=== PATIENT | female | born 1985 | race Caucasian/White ===

== ENCOUNTER 2019-05-08 08:04 | Outpatient (CLI) | payer OTHER, SELFPAY ==
--- NOTE | 2019-05-08 08:11 | ECG_ITS ---
Measurements Intervals [place] Rate: 61 P: [place]: 0 QRS: 79 QRSD: 83 T: 69 QT: 406 QTc: 411 Interpretive Statements SINUS RHYTHM BASELINE ARTIFACT- I, II, III, AVR, AVL, AVF NORMAL ECG Electronically Signed On 05-08-2019 8:35:41 PRODUCT MANAGEMENT INTERN by Moise Pulliam D.O.
[2019-05-08 08:31] LABS: Hematocrit 36.2 % (37.0-47.0); Hemoglobin 11.1 g/dL (12.0-15.0)
== END 2019-05-08 08:05 | disposition home or self-care (01) ==
PROVIDERS: Anesthesiology; PCP Physician Assistant; Visit Provider Surgery Plastic and Reconstructive Surgery
DX: L57.4 Cutis laxa senilis (principal)
CPT/HCPCS: 36415; 85014; 85018; 93005

== ENCOUNTER 2019-05-17 00:47 | Day surgery (SDC) | payer OTHER, SELFPAY ==
[2019-05-01 15:14] VITALS: BMI 26.3
[2019-05-17] VITALS (15 sets, daily range): BP systolic 99–126; BP diastolic 43–81; PULSE 55–78; RESP 12–20; TEMP 36.2–36.8; O2SAT 92–100
--- NOTE | ~2019-05-17 | XR_ITS ---
EXAMINATION: XR chest 1V portable INDICATION: Pneumothorax TECHNIQUE: Portable AP chest at 0641 hours COMPARISON: 05/17/2019 FINDINGS: A tiny right apical pneumothorax persists but has decreased. A small right pleural effusion persists but has also decreased. Airspace opacities of the right lung base have improved. Changes of bilateral augmentation mammoplasty are noted with mild soft tissue gas in the breasts and chest wall . The cardiomediastinal silhouette is normal. IMPRESSION: 1. Tiny right apical pneumothorax with interval decrease in size. 2. Small right pleural effusion, decreased. 3. Right basilar airspace opacity with improvement, consistent with atelectasis versus pneumonia. Reviewed, dictated and finalized at location A.
--- NOTE | ~2019-05-17 | XR_ITS ---
EXAMINATION: XR chest 1V portable DATE: 05/17/2019 11:41 INDICATION: Bilateral augmentation mammoplasty. Progressive tension abdominoplasty. Postop. TECHNIQUE: A single frontal view of the chest was obtained. COMPARISON: None. FINDINGS: There are bilateral breast implants. There is gas in the chest wall bilaterally, consistent with recent surgery. There is a small right pleural effusion. There are airspace opacities at right lung base. There is a small right apical pneumothorax. The heart size is normal. IMPRESSION: 1. Small right hydropneumothorax. 2. Airspace opacities at right lung base, consistent with atelectasis versus pneumonia. Reviewed, dictated and finalized at location A. IMPRESSION: 1. Small right hydropneumothorax. 2. Airspace opacities at right lung base, consistent with atelectasis versus pn eumonia.
[2019-05-17 06:29] LABS: Urine Cotinine NEGATIVE
[2019-05-17] MEDS: LACTATED RINGERS 1,000 ML 30 ML IV CONT ×2 (06:35→11:30)
--- NOTE | 2019-05-17 06:54 | WPDHPUPDATE1 ---
History and Physical Update Update Date/Time: 05/17/19 06:54 History and Physical has been reviewed, including an updated exam of the patient. There are NO changes in the patient's condition. Risks, benefits, and alternatives have been discussed and questions answered. Patient agrees to proceed with procedure.
--- NOTE | 2019-05-17 07:10 | WPDANESEPPF ---
Anes - Initial Pre Proc Eval Procedure: Operation Date: 05/17/19 07:30 Proposed Procedures p Bilateral Breast Augmentation - Jayden Hudson MD s Abdominoplasty - Jayden Hudson MD Date/Time: 05/17/19 07:10 Surgeon: Jayden Hudson MD Pre Op Diagnosis: Skin laxity, micromastia Patient Data Age: 33 Gender: F Height: 5 ft 6 in Weight: 73.2 kg Last Vital Signs Temp 36.8 C 05/17/19 06:12 Pulse 61 05/17/19 06:12 Resp 16 05/17/19 06:12 BP 99/43 L 05/17/19 06:12 Pulse Ox 100 05/17/19 06:12 Allergies Allergy/AdvReac Type Severity Reaction Status Date / Time codeine AdvReac Unknown Nausea and Verified 05/17/19 06:51 Vomiting Home Medications Medication Instructions Recorded Confirmed Type norgestimate-ethinyl estradiol 1 tablet PO DAILY 03/04/19 05/17/19 History carisoprodol 350 mg tablet 350 mg PO TID PRN #21 tablet 04/15/19 05/01/19 Rx docusate sodium 100 mg capsule 100 mg PO BID #14 cap 04/15/19 05/01/19 Rx ondansetron HCl 4 mg tablet 4 mg PO Q6H #30 tablet 04/15/19 05/01/19 Rx oxycodone-acetaminophen 5 mg-325 1 tablet PO Q6H PRN #15 tablet 04/15/19 05/17/19 Rx mg tablet Laboratory Tests 05/17/19 06:12 Cotinine Negative Patient hx anesthesia problems: post op nausea/vomiting Family hx anesthesia problems: none PMFSH Surgical History Surgical History History of Social History Social History Smoking status: Never smoker Alcohol intake: current Anes - Eval Final PreProcedure Day of Procedure 05/17/19 07:10 Patient weight: normal Heart: regular rate and rhythm Lungs: clear to auscultation Airway: Mallampati scale class II Neurological: alert and oriented Last oral intake: >/= 8 hours ASA classification: I Emergent: no Anesthetic plan: proceed Anesthesia type and monitoring: general LMA and standard monitoring Informed Consent: The patient's anesthetic plan and its attendant risks and benefits were discussed with the patient/family/POA. Questions were solicited and answers provided to the satisfaction of the patient/family/POA.
--- NOTE | 2019-05-17 07:34 | PM.PROC ---
Procedure Note - Detailed Date of procedure: 05/17/19 Pre-op diagnosis: Skin laxity, micromastia Post-op diagnosis: same Procedure performed: 1. Bilateral augmentation mammaplasty 2. Progressive tension abdominoplasty Description of procedure: She is here today for bilateral breast augmentation and abdominoplasty. Previously and again today the risks, benefits, alternatives were discussed in extensive detail. I wanted her to be very realistic about the risks involved as well as expectations. We discussed aftercare and what to monitor for. Made sure answered all of her questions to her satisfaction today and consent was obtained. Marked in the preoperative holding area with their verification. The patient was taken to the operating room placed supine on the operating table. Anesthesia was provided by anesthesiology. A ireland catheter was started. A surgical time-out was taken. We cleansed the skin and 1% lidocaine and 0.25% Marcaine with epinephrine was used anesthetize as a field block. She was prepped and draped in a standard sterile fashion. Tegaderm nipple Hunter were placed. A 15 blade used to make an incision along the inframammary fold. Dissection was continued at 45 degree angle until the chest wall as identified. I incised the pectoralis major along its inferior border and completely released the inferior border leaving the medial border intact. I created a subpectoral pocket in the appropriate dimensions based on our preoperative planning for the implant. During this approach on the right breast I entered the intercostal space. A red rubber catheter was placed and sutured around with 2-0 Vicryl. I then copiously irrigated with saline solution and verified a strict hemostasis. Next the use a triple antibiotic and Betadine containing solution to irrigate the pocket. I washed my gloves with the triple antibiotic and Betadine solution. We washed the implant immediately upon opening it with this solution and only opened it when we needed it. I used implant funnel and no-touch technique. The implant was introduced into the pocket using the funnel. Having verified positioning of the implant this was closed using 2-0 Vicryl followed by 3-0 Monocryl in a running subcuticular 4-0 Monocryl followed by tissue glue. I then proceeded with the abdominoplasty. I placed the patient in a flexed position to verify the upper and lower markings would reach. I then placed her supine. A thorough abdominal examination was completed. Stab incisions were made and used tumescent solution. A 10 blade was used to make the upper incision. I continued dissection down to the level of fascia. Elevated just what was necessary for repair of the diastasis and discontinuous undermining otherwise. I then again flexed the bed to verify the upper skin flap would reach the lower markings without tension. Once verified I placed her supine once again and a 10 blade used to make the lower incision. I elevated up to level the umbilicus and left the umbilicus intact on a well-vascularized stalk. The intervening tissue was removed. A 2 mm blunt cannula and Exparel which was mixed 20 cc in 100 cc for a total volume of 120 cc I injected deep to the fascia bilaterally as well as along the incision lines and lateral to the breast (using a 22 guage needle) I plicated the diastasis recti using 0 PDO stratafix barbed suture. This was in 2 separate layers using 2 separate sutures as well. I repaired around the umbilicus leaving plenty of room for well-vascularized stalk of the umbilicus with 2-0 PDS. The patient was flexed and starting from superior to inferior began plication using 2-0 Vicryl to obliterate all space in a standard progressive tension fashion. At the umbilicus I marked out the location of the skin and inset this with 3-0 Monocryl and 4-0 nylon. I continued the remainder of the plication using 2-0 Vicryl until I reached my lower planned scar line. I trimmed any
[2019-05-17] MEDS: ceFAZolin 2 GM/D5W 50 ML 2 GM/50 ML BAG IVPB (07:42)
[2019-05-17] MEDS: LIDO 1%/EPINEPHRINE 1:100,000 20 ML VIAL 40 ML INFILTRATE (08:57)
--- NOTE | 2019-05-17 11:16 | SUR.OPER ---
EBL 200ml
--- NOTE | 2019-05-17 12:55 | OBPPTRN ---
Patient transferred to room # 280 via bed. Oriented to unit, room, admission packet and care routines. Patient verbalizes understanding.
--- NOTE | 2019-05-17 12:55 | OBPPTRN ---
Patient transferred to post room # via ( ). Support person present. Oriented to unit, room, information board, rooming in, admission packet and security measures. Patient verbalizes understanding.
[2019-05-17] MEDS: LACTATED RINGERS 1,000 ML 125 ML IV CONT (13:22)
[2019-05-17] MEDS: carisoprodoL 350 MG TABLET PO ×2 (13:22→19:14)
[2019-05-17] MEDS: DOCUSATE SODIUM 100 MG CAPSULE PO (21:31)
[2019-05-18 01:00] VITALS: BP 114/76; PULSE 59; RESP 16; TEMP 36.8; O2SAT 95
[2019-05-18] MEDS: carisoprodoL 350 MG TABLET PO ×4 (01:01→18:15)
[2019-05-18 05:00] VITALS: BP 103/69; PULSE 71; RESP 16; TEMP 36.4; O2SAT 95
--- NOTE | 2019-05-18 06:35 | PC.NURSE ---
Radiology here for pt. chest xray.
[2019-05-18] MEDS: DOCUSATE SODIUM 100 MG CAPSULE PO (07:13)
[2019-05-18] MEDS: ENOXAPARIN 40 MG/0.4 ML SYRINGE SUB-Q (07:13)
[2019-05-18 07:23] VITALS: BP 117/69; PULSE 69; RESP 18; TEMP 36.6
--- NOTE | 2019-05-18 07:40 | WPDANESPN ---
Anes - Prog Note Post-Op Date/Time: 05/18/19 07:40 Cardiovascular status: normal Respiratory status: normal Airway patency: baseline Mental status: baseline Post-Op hydration status: normal Vital Signs: Last Vital Signs Temp 36.6 C 05/18/19 07:23 Pulse 69 05/18/19 07:23 Resp 18 05/18/19 07:23 BP 117/69 05/18/19 07:23 Pulse Ox 95 05/18/19 05:00 I/O: Intake & Output 05/17/19 05/17/19 05/18/19 15:59 23:59 07:59 Intake Total 150 1600 200 Output Total 2550 1100 Balance 150 -950 -900 Post-procedural complaints: none Patient Feedback: Patient satisfied with anesthetic care.
--- NOTE | 2019-05-18 09:18 | WPDPN ---
Progress Note: A&P Assessment and Plan (1) Micromastia: Code(s): N64.82 - Hypoplasia of breast Status: Acute Assessment and Plan: She is doing very well. Will plan for discharge home later today. Today we had a lengthy discussion with her and her about the care. What monitor for. Answered all of their questions to their satisfaction. (2) Skin laxity: Code(s): L57.4 - Cutis laxa senilis Status: Acute Assessment and Plan: As above (3) PONV (postoperative nausea and vomiting): Code(s): R11.2 - Nausea with vomiting, unspecified; Z98.890 - Other specified postprocedural states Status: Acute Assessment and Plan: Mild nausea but overall doing well. Will slowly increase diet. (4) History of : Code(s): Z98.891 - History of uterine scar from previous surgery Status: Acute Time Spent With Patient Time: 20 minutes Review of Systems Review of Systems: All systems reviewed & are unremarkable except as noted in HPI and below Exam Const: General: comfortable, no acute distress, alert and awake; No acute distress Orientation/consciousness: oriented to person HENMT: Head: normal to inspection Ears: external ears normal General nose exam: Normal external nose present Face and sinus: normal facial exam Eyes: General: appearance normal, both eyes and all related structures Periorbital: periorbital findings normal Eyelids: eyelids normal Conjunctivae: conjunctivae normal Neck: Neck: normal visual inspection Chest: Chest palpation & inspection: normal inspection of the chest Resp: Effort & Inspection: normal respiratory effort and able to speak in complete sentences GI: Inspection: normal to inspection Neuro: General: oriented to person Extrem: Other: No calf tenderness. Negative Homans. Psych: Appearance: grossly normal Mental Status: mental status grossly normal Other: Bilateral breasts are soft. No signs of infection. No hematoma. No seroma. Abdomen is healing well. There is no signs of infection. No hematoma. No seroma. Good color and capillary refill of the skin. Objective Data Vital Signs Vital Signs: Vital Signs - 24 hr 05/17/19 11:30 05/17/19 11:45 05/17/19 12:00 Temperature 36.2 C L Pulse Rate 73 75 78 Respiratory Rate 17 15 16 Blood Pressure 120/78 126/80 118/72 Pulse Oximetry 100 95 94 03/13/20 12:15 05/17/19 12:30 05/17/19 12:45 Temperature Pulse Rate 61 60 55 L Respiratory Rate 20 12 13 Blood Pressure 121/71 119/69 107/66 Pulse Oximetry 94 92 95 05/17/19 12:55 05/17/19 13:00 05/17/19 13:15 Temperature 36.2 C L Pulse Rate 78 67 60 Respiratory Rate 16 16 16 Blood Pressure 110/66 101/59 L 114/76 Pulse Oximetry 100 96 96 05/17/19 13:30 05/17/19 14:00 05/17/19 15:00 Temperature Pulse Rate 59 L 59 L 63 Respiratory Rate 16 16 16 Blood Pressure 111/71 116/74 113/73 Pulse Oximetry 97 95 96 05/17/19 16:30 05/17/19 19:15 05/18/19 01:00 Temperature 36.6 C 36.8 C Pulse Rate 66 61 59 L Respiratory Rate 20 18 16 Blood Pressure 119/76 124/81 114/76 Pulse Oximetry 96 100 95 05/18/19 05:00 05/18/19 07:23 Temperature 36.4 C 36.6 C Pulse Rate 71 69 Respiratory Rate 16 18 Blood Pressure 103/69 117/69 Pulse Oximetry 95 Intake/Output Intake/Output: Intake & Output 05/15/19 05/16/19 05/17/19 05/18/19 23:59 23:59 23:59 23:59 Intake Total 1800 200 Output Total 2550 1100 Balance -750 -900 Meds/Results Medications: Active Medications Generic Name Dose Route Start Last Admin Trade Name Juan PRN Reason Stop Dose Admin Carisoprodol 350 mg 05/17/19 12:00 05/18/19 07:13 Soma PO 350 mg Q6HR DAMI Administration Docusate Sodium 100 mg 05/17/19 21:00 05/18/19 07:13 Colace Capsule PO 100 mg Q12HR DAMI Administration Enoxaparin Sodium 40 mg 05/18/19 09:00 05/18/19 07:13 Lovenox SUB-Q 40 mg DAILY DAMI Administration Lactated Ring
--- NOTE | 2019-05-18 09:26 | PM.DS ---
DS: Diagnosis Admitting Diagnosis Admitting Diagnosis: Cutis laxa senilis Micromastia DS: Summary Time Spent with Patient Time attestation: Total time spent providing and/or coordinating discharge services: 20 minutes Exam Const: General: comfortable, no acute distress, alert and awake; No acute distress Orientation/consciousness: oriented to person HENMT: Head: normal to inspection Ears: external ears normal General nose exam: Normal external nose present Face and sinus: normal facial exam Eyes: General: appearance normal, both eyes and all related structures Periorbital: periorbital findings normal Eyelids: eyelids normal Conjunctivae: conjunctivae normal Neck: Neck: normal visual inspection Chest: Chest palpation & inspection: normal inspection of the chest Resp: Effort & Inspection: normal respiratory effort and able to speak in complete sentences GI: Inspection: normal to inspection Neuro: General: oriented to person Extrem: Other: No calf tenderness. Negative Homans. Psych: Appearance: grossly normal Mental Status: mental status grossly normal Other: Bilateral breasts are soft. No signs of infection. No hematoma. No seroma. Abdomen is healing well. There is no signs of infection. No hematoma. No seroma. Good color and capillary refill of the skin. Discharge Plan Discharge Patient Disposition: Home, Self-Care Discharge Instructions: POST OPERATIVE DISCHARGE INSTRUCTIONS FOR: Breast Augmentation / Abdominoplasty JAYDEN HUDSON M.D. [facility] [address] [place] [address] [address] for 24 hours after anesthesia and while you are taking pain medication. Take all prescribed medication as directed Diet as tolerated. Gentle shoulder rolls and arm stretches 10 times per hour. No lifting or activity that raises blood pressure for 48 hours. No lifting over 20 pounds or straining abdomen for 6 weeks. Regular walking / ambulation. Slowly stand up straight over the next week as tolerated. You may shower. Do not take pain medication before showering as the combination of medication and heat may cause you to feel dizzy or pass out. Let soap and water run over your incisions. Do not scrub or directly wash your incision. Replace the surgical bra and abdominal binder and wear it 23 hours per day. No pools or tubs for at least 2 weeks. Call with any questions or concerns. If you have any questions or concerns, please call the office . If it is after hours you will be directed to the artist relationship manager exchange. Shortness of breath, chest pain, or other medical emergency dial 911 / proceed to the Emergency Room. Follow-up/Referrals: Jayden Hudson MD [Physician] - Other (Next week as scheduled.) Discharge Medications: Continued norgestimate-ethinyl estradiol 0.18/0.215/0.25 mg-25 mcg tablet 1 tablet PO DAILY RF: 0 carisoprodol [Soma] 350 mg tablet 350 mg PO TID PRN (Reason: muscle pain) Qty: 21 RF: 0 ondansetron HCl [Zofran] 4 mg tablet 4 mg PO Q6H Qty: 30 RF: 0 docusate sodium [Colace] 100 mg capsule 100 mg PO BID Qty: 14 RF: 0 oxycodone-acetaminophen [Percocet] 5-325 mg tablet 1 tablet PO Q6H PRN (Reason: pain) Qty: 15 RF: 0 Quality VTE Prophylaxis VTE prophylaxis: pharmacologic ordered (Discussed options with patient. They would like to do ambulation once home for DVT prophylaxis.)
--- NOTE | 2019-05-18 10:50 | PC.NURSE ---
Pt. assisted to side of bed. Became dizzy upon standing. Assisted back to bed. Vitals stable: 100/65, 64, 20. Cold rag applied to forehead. Encouraged to rest. Side rails up x2. at side. Call light within reach.
[2019-05-18] MEDS: ONDANSETRON INJ 4 MG/2 ML VIAL IV PUSH ×2 (12:58→18:16)
[2019-05-18] MEDS: IBUPROFEN 600 MG TABLET PO ×2 (15:07→15:08)
[2019-05-18 15:24] VITALS: BP 118/64; PULSE 74; RESP 18; TEMP 36.8
== END 2019-05-18 18:30 | disposition home or self-care (01) ==
LOC: ANHSURGERY 07:40 → ANHOB2 12:54
PROVIDERS: PCP Physician Assistant; Visit Provider Surgery Plastic and Reconstructive Surgery
PROC: (CPT 19325; principal; 2019-05-17 07:30)
PROC: (CPT 19325; 2019-05-17 07:30)
DX: Z41.1 Encounter for cosmetic surgery (principal); L57.4 Cutis laxa senilis; N64.82 Hypoplasia of breast
CPT/HCPCS: 19325; 15830; 15847; 36415; 71045; 80307; 99199; A9270; C9290; J0131; J0171; J0690; J1100; J1170; J1580; J1650; J2250; J2405; J2704; J3010; J7030; J7120